=== PATIENT | female | born 1970 | race Caucasian/White ===

== ENCOUNTER 2018-02-03 09:07 | Emergency (ER) | payer OTHER ==
[~2018-02-03] VITALS: Ht 152.4 cm; Wt 122.5 kg
[~2018-02-03 09:07] MED LIST: AMBIEN10 MG; COZAAR25 MG; HYZAAR 50/12.51 TAB; MECLIZINE HCL25 MG PO; SULINDAC200 MG; ZANAFLEX4 M1
[2018-02-03] MEDS ORDERED: LODINE XL500 MG PO (09:49)
== END 2018-02-03 13:46 | disposition home or self-care (01) ==
LOC: ER 09:07
DX: S80.01XA Contusion of right knee, initial encounter (principal); L03.115 Cellulitis of right lower limb; W18.39XA Other fall on same level, initial encounter; Y93.89 Activity, other specified; Y92.89 Other specified places as the place of occurrence of the external cause; Y99.8 Other external cause status

== ENCOUNTER 2018-06-11 19:23 | Emergency (ER) | payer OTHER ==
[~2018-06-11] VITALS: Ht 165.1 cm; Wt 122.0 kg
[~2018-06-11 19:23] MED LIST changes: +LODINE XL500 MG PO
== END 2018-06-12 00:26 | disposition home or self-care (01) ==
LOC: ER 19:23
DX: M51.06 Intervertebral disc disorders with myelopathy, lumbar region (principal); M54.16 Radiculopathy, lumbar region; M54.5 Low back pain

== ENCOUNTER → 2018-06-27 | Emergency (ER) | payer OTHER ==
[~2018-06-27] VITALS: Ht 165.1 cm; Wt 117.9 kg
[~2018-06-27] MED LIST changes: +CELECOXIB200 MG PO; +DICLOFENAC; +MEDROLPACK PO; +PERCOCET 5-3251 EACH PO; +SKELAXIN800 MG PO; +VOLTAREN-XR100 MG
== END | disposition home or self-care (01) ==
LOC: ER 10:58
DX: M48.061 Spinal stenosis, lumbar region without neurogenic claudication (principal); R10.32 Left lower quadrant pain

== ENCOUNTER 2023-01-13 13:06 | Emergency (ER) | payer OTHER ==
[~2023-01-13] VITALS: Ht 162.6 cm; Wt 127.0 kg
== END 2023-01-13 19:10 | disposition home or self-care (01) ==
LOC: ER 13:06
DX: M54.59 Other low back pain (principal); G89.29 Other chronic pain; Z88.0 Allergy status to penicillin; Z88.8 Allergy status to other drugs, medicaments and biological substances; Z91.041 Radiographic dye allergy status

== ENCOUNTER 2024-06-02 23:42 | Emergency (ER) | payer OTHER ==
[~2024-06-02] VITALS: Ht 165.1 cm; Wt 136.1 kg
[2024-06-02] MEDS ORDERED: LOSARTAN POTASS25 MG PO (23:47)
[2024-06-02] MEDS ORDERED: VITAMIN B-12500 MC2 PO (23:48)
[2024-06-02] MEDS ORDERED: MAXIMUM D3325 MCG PO (23:49)
[2024-06-02] MEDS ORDERED: VITAMIN C500 M2 PO (23:49)
[2024-06-03] MEDS ORDERED: METHYLPREDNISOLONE SOD SUCC 125 MG VIAL IM STA (05:35)
[2024-06-03] MEDS ORDERED: KETOROLAC TROMETHAMINE 60 MG VIAL IM STA (05:35)
[2024-06-03] MEDS ORDERED: KETOROLAC TROMETHAMINE 60 MG VIAL IM ONE (05:46)
[2024-06-03] MEDS ORDERED: METHYLPREDNISOLONE SOD SUCC 125 MG VIAL ONE (05:46)
[2024-06-03] MEDS ORDERED: PERCOCET 5-3251 EACH PO (05:47)
== END 2024-06-03 06:05 ==
LOC: ER 23:44
DX: M79.672 Pain in left foot (principal); Z91.041 Radiographic dye allergy status; Z88.2 Allergy status to sulfonamides; I10 Essential (primary) hypertension; M79.7 Fibromyalgia